=== PATIENT | female | born 1950 | race Two or more races ===

== ENCOUNTER 2017-12-29 08:24 | Emergency (ER) | payer OTHER ==
[~2017-12-29] VITALS: Ht 152.4 cm; Wt 64.9 kg
[~2017-12-29 08:24] MED LIST: CIPRO500 MG PO; CIPRO750 MG PO; CLONAZEPAM1 MG PO; DOCUSATE SODIU100 MG PO; GLUCOPHAGE XR500 MG PO; GLUCOTROL10 MG PO; HUMULIN N3 ML; KLONOPIN0.5 MG/TAB PO; METHYLPRED4 MG/DOSE- PO; NAPROXEN500 M1 PO; NEURONTIN PO; PAMELOR10 MG PO; PERCOCET 5/321 UDTAB PO; RELAGESIC TABLE1 TAB PO
== END 2017-12-29 13:41 | disposition home or self-care (01) ==
LOC: ER 08:24
DX: M54.89 Other dorsalgia (principal); R10.11 Right upper quadrant pain